=== PATIENT | female | born 1935 | race Caucasian/White ===

== ENCOUNTER → 2023-10-19 10:57 | Outpatient (REF) | payer BC, SELFPAY | LOC: DHCBS HW 10:57 | PROVIDERS: ATTENDING PHYSICIAN Internal Medicine Cardiovascular Disease; FAMILY PHYSICIAN Physician Assistant Medical | DX: I48.0 Paroxysmal atrial fibrillation (principal); I35.8 Other nonrheumatic aortic valve disorders | CPT/HCPCS: 93306 ==

== ENCOUNTER → 2024-01-18 06:46 | Outpatient (REF) | payer BC, SELFPAY ==
[2024-01-18 10:05] LABS: % Basophils 0.9 % (0-2); % Eosinophils 8.5 % (0-6); % Immature Granulocytes 0.4 % (0-0.5); % Lymphocytes 36.2 % (20.5-51.1); % Monocytes 10.7 % (1.7-9.3); % Neutrophils 43.3 % (42.2-75.2); Absolute Basophils 0.1 10^3/uL (0-0.2); Absolute Eosinophils 0.5 10^3/uL (0-0.7); Absolute Monocytes 0.6 10^3/uL (0.1-0.6); Absolute Neutrophils 2.4 10^3/uL (1.4-6.5); Hematocrit 33.8 % (37.0-47.0); Mean Corp Hgb Conc. 35.5 g/dL (33.0-37.0); Mean Corpuscular Hgb 32.3 pg (27.0-31.0); Mean Corpuscular Volume 90.9 fL (81.0-99.0); Nucleated Red Blood Cells % 0 %; Platelet Count 229 10^3/uL (130-400); Red Blood Cell Count 3.72 10^6/uL (4.20-5.40); Red Cell Dist. Width 13.3 % (11.5-14.5); White Blood Cell Count 5.4 10^3/uL (4.8-10.8)
[2024-01-18 11:06] LABS: ALT (SGPT) 35 U/L (0-35); AST (SGOT) 50 U/L (14-36); Albumin 4.3 g/dl (3.5-5.0); Alkaline Phosphatase 160 U/L (38-126); Blood Urea Nitrogen 23 mg/dl (7-17); Carbon Dioxide 26 mmol/L (22-30); Chloride 101 mmol/L (98-107); Glucose 106 mg/dl (70-99); Potassium 4.1 mmol/L (3.5-5.1); Sodium 135 mmol/L (135-145); Total Bilirubin 1.4 mg/dl (0.2-1.3); Total Cholesterol 252 mg/dl (50-199); Total Protein 7.4 g/dl (6.3-8.2); Triglyceride 57 mg/dl (10-149); Very Low Density Lipoprotein 11 mg/dl (0-30); eGFR > 60.00
[2024-01-18 11:15] LABS: HDL Cholesterol 122 mg/dl; LDL Cholesterol, Calculated 119 mg/dl
[2024-01-18 11:36] LABS: TSH Reflex To Free T4 3.22 uIU/ml (0.47-4.68)
== END ==
LOC: HWLAB 06:46
PROVIDERS: ATTENDING PHYSICIAN Physician Assistant Medical
DX: R74.8 Abnormal levels of other serum enzymes (principal); Z13.29 Encounter for screening for other suspected endocrine disorder; Z13.220 Encounter for screening for lipoid disorders
CPT/HCPCS: 36415; 80053; 80061; 84443; 85025

== ENCOUNTER → 2024-11-26 06:44 | Outpatient (REF) | payer BC, SELFPAY ==
[2024-11-26 09:54] LABS: ALT (SGPT) 25 U/L (0-35); AST (SGOT) 31 U/L (14-36); Albumin 4.4 g/dl (3.5-5.0); Alkaline Phosphatase 124 U/L (38-126); Alkaline Phosphatase, Total 124 U/L (38-126); Blood Urea Nitrogen 23 mg/dl (7-17); Calcium 9.9 mg/dl (8.4-10.2); Carbon Dioxide 28 mmol/L (22-30); Chloride 100 mmol/L (98-107); Glucose 100 mg/dl (70-99); Sodium 137 mmol/L (135-145); Total Bilirubin 1.3 mg/dl (0.2-1.3); Total Protein 7.1 g/dl (6.3-8.2); eGFR > 60.00
[2024-11-26 15:34] LABS: Alk Phos After Heat 85; Alkaline Phosphatase Percent 68.55
== END ==
LOC: HWLAB 06:44
PROVIDERS: ATTENDING PHYSICIAN Physician Assistant
DX: R74.8 Abnormal levels of other serum enzymes (principal)
CPT/HCPCS: 36415; 80053; 84078

== ENCOUNTER → 2025-09-08 06:59 | Outpatient (REF) | payer BC, SELFPAY ==
[2025-09-08 09:49] LABS: Hematocrit 38.3 % (37.0-47.0); Hemoglobin 13.0 g/dL (12.0-16.0); Mean Corp Hgb Conc. 33.9 g/dL (33.0-37.0); Mean Corpuscular Volume 94.1 fL (81.0-99.0); Nucleated Red Blood Cells % 0 %; Platelet Count 250 10^3/uL (130-400); Red Cell Dist. Width 13.2 % (11.5-14.5)
[2025-09-08 10:42] LABS: ALT (SGPT) 39 U/L (0-35); AST (SGOT) 46 U/L (14-36); Albumin 4.5 g/dl (3.5-5.0); Alkaline Phosphatase 223 U/L (38-126); Blood Urea Nitrogen 20 mg/dl (7-17); Calcium 9.7 mg/dl (8.4-10.2); Carbon Dioxide 25 mmol/L (22-30); Chloride 100 mmol/L (98-107); Glucose 103 mg/dl (70-99); Magnesium 1.6 mg/dl (1.6-2.3); Potassium 4.1 mmol/L (3.5-5.1); Sodium 134 mmol/L (135-145); Total Protein 7.6 g/dl (6.3-8.2); Very Low Density Lipoprotein 15 mg/dl (0-30); eGFR > 60.00
[2025-09-08 10:54] LABS: HDL Cholesterol 112 mg/dl; LDL Cholesterol, Calculated 127 mg/dl
[2025-09-08 12:29] LABS: Vitamin D, 25-OH*** 51.2 ng/mL (30-80)
== END ==
LOC: HWLAB 06:59
PROVIDERS: ATTENDING PHYSICIAN Internal Medicine Cardiovascular Disease
DX: I48.0 Paroxysmal atrial fibrillation (principal); E55.9 Vitamin D deficiency, unspecified
CPT/HCPCS: 36415; 80053; 80061; 82306; 83735; 84443; 85025